=== PATIENT | male | born 1970 | race Caucasian/White ===

== ENCOUNTER 2018-04-21 04:02 | Observation (INO) ==
[2018-04-21] MEDS ORDERED: OXYCODONE Oral CONC 10 MG/0.5 ML ORAL.SYG SL PRN ×2 (06:42→11:15)
[2018-04-21] MEDS ORDERED: Naloxone 0.4 MG/ML INJ IVP PRN ×4 (06:42→11:15)
[2018-04-21] MEDS ORDERED: Ketorolac 30 MG/ML VIAL IVP PRN ×2 (06:42→11:15)
[2018-04-21] MEDS ORDERED: 0.9 % Sodium Chloride 1,000 ML IVC SCH (06:45)
[2018-04-21] MEDS ORDERED: *HR* FentaNYL (PF) 100 MCG/2 ML VIAL ONE ×2 (07:25→09:32)
[2018-04-21] MEDS ORDERED: *HR* Midazolam HCl 2 MG/2 ML VIAL ONE (07:26)
[2018-04-21] MEDS ORDERED: *HR* Propofol 200 MG/20 ML VIAL IVP ONE ×2 (07:26→09:48)
[2018-04-21] MEDS ORDERED: *HR* Succinylcholine 200 MG/10 ML VIAL IVP ONE (07:27)
[2018-04-21] MEDS ORDERED: Lidocaine -MPF 2% 2 ML VIAL ONE (07:27)
[2018-04-21] MEDS ORDERED: Dexamethasone 4 MG/ML VIAL ONE (07:29)
[2018-04-21] MEDS ORDERED: Ondansetron 4 MG/2 ML VIAL ONE (07:29)
[2018-04-21] MEDS ORDERED: Isovue-300 50 ML VIAL IVP ONE (07:51)
--- NOTE | 2018-04-21 08:00 | Urology - Consult Note ---
Date of Encounter: 04/21/18 Time of Encounter: 07:58 Urology CN:MICHELLE Consult date: 04/21/18 Reason for consult Urology: Hydronephrosis Requesting physician: Asia Whitt History of present illness: Dion is a 48-year-old male who presents an outside hospital secondary to severe right-sided flank pain. Patient was found to have a proximal right 4-5 mm ureteral stone. Patient also with gross hematuria. Patient on chronic anticoagulation secondary to right lower extremity DVT history. Patient also with history of diabetes which she states is well controlled. Patient had bacteria in his urine on urinalysis done at outside hospital. No fevers documented. No nausea or vomiting at this time the patient does admit to occasional nausea over the past couple days. Medications and Allergies Cholecalciferol (Vitamin D3) [Vitamin D] 1,000 unit PO DAILY 04/21/18 [History] Gabapentin [Neurontin] 800 mg PO QID 04/21/18 [History] Rivaroxaban [Xarelto] 20 mg PO DAILY 04/21/18 [History] metFORMIN [Glucophage] 1,000 mg PO BID 04/21/18 [History] Review of Systems - Constitutional fever(s), no chills - EENT Nose, mouth and throat: no dizziness - Cardiovascular no chest pain - Respiratory no cough - Gastrointestinal no abdominal pain Exam Initial Vital Signs Temp Pulse Resp BP Pulse Ox 98.5 F 88 16 171/80 93 04/21/18 07:30 04/21/18 07:30 04/21/18 07:30 04/21/18 07:30 04/21/18 07:30 General/Neuological: alert and oriented x 3 Eyes: normal pupils, non-icteric Neck: no lymphadenopathy noted, supple to touch ABD: soft, nontender, no masses palpated, good bowel sounds Back: no pain on percussion bilaterally Skin: no rashes noted Musculoskeletal: normal gait, FROMx4 Urology Results - Labs All other labs normal. - Imaging CT scan - abdomen: image reviewed CT scan - pelvis: image reviewed
--- NOTE | 2018-04-21 08:01 | Event Note ---
Date of Encounter: 04/21/18 Time of Encounter: 08:00 Assessment and plan patient with right-sided proximal 4-5 mm stone and likely UTI. We will plan on taking the patient to the operative room today for cystoscopy and right ureteral stent placement. Informed consent was reviewed with the patient placed in the chart.
[2018-04-21] MEDS ORDERED: *HR* Dextrose 50 % in Water (Syg) 50 ML SYRINGE IVP PRN ×3 (08:03→16:36)
[2018-04-21] MEDS ORDERED: D5% in Water 1,000 ML IVC PRN ×3 (08:03→16:36)
[2018-04-21] MEDS ORDERED: Nicotine 14 MG PATCH.TD24 TD PRN ×2 (08:03→11:15)
[2018-04-21] MEDS ORDERED: Dextrose Gel 15 GM/37.5 ML TUBE PO PRN ×6 (08:03→16:36)
--- NOTE | 2018-04-21 08:05 | Internal Med History&Physical ---
Date of Encounter: 04/21/18 Time of Encounter: 07:43 Internal Medicine - H&P: HPI Chief complaint: right flank pain, hematuria Admitted From: Intrahospital Transfer Plans for Post Hospital Care: at Home History of present illness: Mr. 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 Patient is states that he started to have right flank pain By 10 in severity nonradiating not associated with vomiting fever or chills a long with gross hematuria yesterday afternoon therefore he went to [facility] and after initial evaluation and first toes of [place] patient was transferred to [facility]. Urologist was consulted. Patient denies fever or chills vomiting dizziness chest pain shortness of breath diarrhea. He complained of nausea, pain is better rating 6 x 10, chronic increased urine frequency, has chronic intermittent cough, nausea. reviewed the lab done in [facility]-mild leukocytosis with stable hemoglobin and no electrolyte imbalance, UA positive for nitrite and RBCs and WBCs Past Med Surg Social Fam HX - Past Medical History Source: patient Medical history: DVT, diabetes, hypertension, migraine - Past Surgical History Surgical History: no surgical history - Social History Smoking Status: Current every day smoker Packs per day: One pack per day Alcohol use: none Occupational status: disabled - Family History Mother Living Status: Still Living Hx Family Cardiac Disorders: Yes Hx Family Endocrine Disorder: Yes (DM) Father Living Status: Cause of : stage 4 lung cancer Hx Family Endocrine Disorder: Yes (DM) Internal Medicine - H&P: Meds Cholecalciferol (Vitamin D3) [Vitamin D] 1,000 unit PO DAILY 04/21/18 [History] Gabapentin [Neurontin] 800 mg PO QID 04/21/18 [History] Rivaroxaban [Xarelto] 20 mg PO DAILY 04/21/18 [History] metFORMIN [Glucophage] 1,000 mg PO BID 04/21/18 [History] Allergy/AdvReac Type Severity Reaction Status Date / Time morphine AdvReac Itching Verified 04/21/18 08:17 tramadol AdvReac Anxiety Verified 04/21/18 08:17 All Systems PM: A 10-system review of systems was performed and is negative for pertinent findings except as documented above in the HPI. - Constitutional Vitals: Temp Pulse Resp BP Pulse Ox 98.5 F 88 16 171/80 93 04/21/18 07:30 04/21/18 07:30 04/21/18 07:30 04/21/18 07:30 04/21/18 07:30 Exam: General appearance: Mild distress due to pain, obese. Head exam: Atraumatic Eye exam: EOMI, PERRLA ENT exam: Moist oral mucosa Neck nontender, supple Respiratory exam: Clear to auscultation bilaterally Cardiovascular exam: Regular rate and rhythm, no systolic murmur Abdominal exam: Soft, nontender, nondistended, positive bowel sounds , right costovertebral angle tenderness Extremities exam: No calf tenderness, no pedal edema Present: Skin-no rash, warm, dry, intact Neurological exam: Alert, awake, oriented 3, CN II-XII intact, no focal deficits. No facial droop. Normal speech. - Assessment and plan (1) Obstructive uropathy Current Visit: Yes Status: Acute Assessment and plan: CT abdomen done in closure but now printed report available. CD of CT scan was reviewed by urologist with finding of 4-5 mm ureter stone with hydronephrosis. Patient does not appear in sepsis. Mild leukocytosis upon reviewing the lab done in [facility] with normal BMP. Possibility of UTI therefore will continue Rocephin. First dose of Rocephin given around 3:00 in the morning at [facility]. Urologists on board and taking patient to OR now for cystoscopy and possible right ureter stent placement . Keep patient nothing by mouth with IV fluid normal saline 150 per hour, pain management. UA done in [place] with abnormal finding nitrite positive with hematuria. Urine culture ordered. (2) UTI (urinary tract infection) Current Visit: Yes Status: Acute Assessment and plan: As mentioned above. Complicated UTI. Will await for urine culture sensitivity report. Continue Rocephin. Qualifiers: Urinary tract infection type: acute cystitis Hematuria presence: with hematuria Qualified Code(s): N30.01 - Acute cystitis with hematuria (3) Hematuria Current Visit: Yes Status: Acute Assessment and plan: Progressive mature area. Patient is on anticoagulation medicine. Monitor H&H. Hemoglobin is stable -review lab done at [facility]. Resume xarelto as per urology advice. Qualifiers: Hematuria type: gross Qualified Code(s): R31.0 - Gross hematuria (4) Diabetes mellitus Current Visit: Yes Status: Acute Assessment and plan: Has been controlled on metformin only as per patient. Associated with diabetic nephropathy possibly. A1c ordered. Accu-Chek every 6 hours while nothing by mouth and will change to before meals once he starts diabetic diet. SSI low. Diabetes education. Qualifiers: Diabetes mellitus type: type 2 Diabetes mellitus longterm insulin use: without longterm use Diabetes mellitus complication status: with neurologic complications Qualified Code(s): E11.40 - Type 2 diabetes mellitus with diabetic neuropathy, unspecified (5) Hypertension Current Visit: Yes Status: Acute Assessment and plan: High blood pressure that could be due to pain as well. Patient does not take any home antihypertensive medicine. Close monitoring and will consider oral antihypertensive medicine if it stays high. Hydralazine when necessary. Qualifiers: Hypertension type: essential hypertension Qualified Code(s): I10 - Essential (primary) hypertension (6) Smoker Current Visit: Yes Status: Acute Assessment and plan: Chronic a smoker. Smoking cessation education given. Patient is willing to quit therefore resources made available. Nicotine patch as started. (7) DVT prophylaxis Current Visit: Yes Status: Acute Assessment and plan: History of DVT status post IVC filter and xarelto. Will resume Xarelto once cleared by urologist as patient had gross hematuria. SCDs (8) Migraine Current Visit: Yes Status: Acute Assessment and plan: Intermittently get better with Tylenol. Following his PCP. Qualifiers: Migraine type: without aura Intractability: not intractable Qualified Code(s): G43.001 - Migraine without aura, not intractable, with status migrainosus - Time Spent With Patient Total time spent is greater than 50% in coordination of care (as documented) at patient's floor/unit and/or counseling patient: 25 - 35 minutes
[2018-04-21] MEDS ORDERED: Acetaminophen 325 MG TABLET PO PRN ×2 (08:32→11:15)
[2018-04-21] MEDS ORDERED: Albuterol 2.5 MG/3 ML NEBULIZER IH ONE (08:45)
[2018-04-21] MEDS ORDERED: Acetaminophen IV 1,000 MG/100 ML INFUS..BTL ONE (08:49)
[2018-04-21] MEDS ORDERED: Famotidine 20 MG/2 ML VIAL ONE (08:49)
[2018-04-21] MEDS ORDERED: Albuterol 2.5 MG/3 ML NEBULIZER ONE (08:52)
[2018-04-21] MEDS ORDERED: Lidocaine -MPF 4% 5 ML AMPUL ONE (08:57)
--- NOTE | 2018-04-21 08:59 | Anesthesia Evaluation PreOp ---
Date of Encounter: 04/21/18 Time of Encounter: 09:00 - Past History Planned Operation: Rt Ureteral Stent Cystoscopy Cardiac History: HTN, Other (DVT has Filter, on Xarelto) Pulmonary History: Smoker FACTORY MAINTENANCE MANAGER History: Denies Any Significant HX Other Medical History: Diabetes Type II, Other ([place]) Anesthesia History: No Prior Anesthetic Complications Alcohol Use: none Drug use: none Medications and Allergies Cholecalciferol (Vitamin D3) [Vitamin D] 1,000 unit PO DAILY 04/21/18 [History] Gabapentin [Neurontin] 800 mg PO QID 04/21/18 [History] Rivaroxaban [Xarelto] 20 mg PO DAILY 04/21/18 [History] metFORMIN [Glucophage] 1,000 mg PO BID 04/21/18 [History] Allergy/AdvReac Type Severity Reaction Status Date / Time morphine AdvReac Itching Verified 04/21/18 08:17 tramadol AdvReac Anxiety Verified 04/21/18 08:17 - Meds/Allergy Pre-op Review Medications Reviewed: Yes Allergies Reviewed: Yes Beta Blockers on Current Med List: No Anesthesia Exam Vital Signs/O2 Sat/Glucose, Most Current Temp Pulse Resp BP Pulse Ox 04/21/18 07:30 98.5 F 88 16 171/80 93 Height: 5'11 Weight: 297 lbs NPO (# of Hours): MN Pain Scale: 1 - HEENT Pupil (Motor): Pupils equal, EOMI Mallampati: III Teeth: Edentulous Oral Opening: Less than or equal to 3 - FACTORY MAINTENANCE MANAGER LOC: Oriented FACTORY MAINTENANCE MANAGER Motor: Normal RUE, Normal LUE, Normal RLE, Normal LLE, Normal Face FACTORY MAINTENANCE MANAGER Sensory: Normal: RUE, LUE, RLE, LLE, Face - Cardiac Rhythm: Regular Murmur: None JVD: No Carotid Bruit: No - Pulmonary Breath Sounds: bilateral Clear Respiratory Effort: Symmetrical Anesthesia Assess/Plan ASA Score: 3 (HTN Tobacco [place] DM) Level of consciousness: Cooperative Anesthetic Plan: General Autologous Blood: No Monitoring Plan: Standard Monitors Recovery Plan: PACU (Discussed GA, agrees to proceed)
[2018-04-21] MEDS ORDERED: Cholecalciferol (D-3) 1,000 UNIT TABLET PO SCH (09:00)
[2018-04-21] MEDS ORDERED: Gabapentin 400 MG CAPSULE PO SCH (09:00)
[2018-04-21] MEDS ORDERED: *HR* Rivaroxaban 10 MG TABLET PO SCH (09:00)
[2018-04-21] MEDS ORDERED: cefTRIAXone 1,000 MG in Water for inj. (sterile) 20 ML 10 ML IVPB SCH (09:00)
[2018-04-21] MEDS ORDERED: *HR* Promethazine 25 MG/ML VIAL IVP PRN (09:31)
[2018-04-21] MEDS ORDERED: Ondansetron 4 MG/2 ML VIAL IVP ONE (09:31)
[2018-04-21] MEDS ORDERED: *HR* OxyCODONE Immed Rel 5 MG TABLET PO PRN (09:31)
[2018-04-21] MEDS ORDERED: *HR* HYDROmorphone (PF) 1 MG/ML SYRINGE IVP PRN (09:31)
[2018-04-21] MEDS ORDERED: *HR* Rocuronium Bromide 50 MG/5 ML VIAL ONE (09:45)
--- NOTE | 2018-04-21 10:11 | Operative Note ---
Date of procedure: 04/21/18 Pre-op diagnosis: right proximal ureteral stone with uti Post-op diagnosis: same Procedure: Cystoscopy and 4.8 x 28 cm ureteral stent placement Anesthesia: POORNIMAA Surgeon: Jonathan Szymanski Was there an customer relations assistant present: No Estimated blood loss (cc): 0 Specimen: None Condition: stable Disposition: PACU Procedure in Detail: Patient was prepped and draped in normal sterile fashion. Timeout procedure performed. I then inserted the cystoscope into the patient's bladder. He had a mild amount of gross hematuria within his bladder lumen. No obvious tumors were noted. I then cannulated the right ureteral orifice using a sensor wire. A 4.8 x 28 cm stent was then placed into the right kidney with good curl seen in the right kidney and in the bladder. Bladder was drained and procedure was ended. Patient taken to PACU in stable condition.
--- NOTE | 2018-04-21 10:51 | Anesthesia Evaluation Post Op ---
Date of Encounter: 04/21/18 Time of Encounter: 11:00 - Vital Signs Vital Signs: Vital Signs/O2 Sat/Glucose, Most Current Temp Pulse Resp BP Pulse Ox 04/21/18 10:41 99 20 119/75 93 04/21/18 10:31 104 22 131/76 93 04/21/18 10:21 98.9 F 103 20 117/80 100 04/21/18 07:30 98.5 F 88 16 171/80 93 - Lungs Lungs: Clear Ascult./Percussion - Airway Airway: Non-obstructed - Cardiovascular Regular Rate - Mental Status Mental Status: Alert & Oriented, Answers Appropriately - Pain Pain Scale: 0 - Nausea Vomiting Nausea Vomiting: Not Present - Hydration Hydration: Ice chips - Discharge PostOp Status: Transfer Patient to floor
[2018-04-21 11:48] LABS: Bilirubin,Urine Negative (Negative); Blood,Urine Large (Negative); Clarity,Urine Clear (Clear); Color,Urine Yellow (Yellow); Glucose,Urine (UA) Normal (Normal); Ketones,Urine Negative (Negative); Leukocyte Esterase,Urine Negative (Negative); Nitrite,Urine Negative (Negative); Protein,Urine 30 mg/dL (Neg-Trace); Specific Gravity,Urine 1.009 (1.010-1.025); Urobilinogen,Urine Normal (Normal)
[2018-04-21] MEDS ORDERED: Insulin LISPRO 300 UNITS/3 ML VIAL SQ SCH ×3 (12:00→21:00)
[2018-04-21] MEDS: 0.9 % Sodium Chloride 1,000 ML IVC SCH ×2 (12:10→19:03)
[2018-04-21 13:19] LABS: Basophils % 0.2 %; Eosinophils # 0.2 K/mcL (0.0-0.6); Eosinophils % 0.9 %; Hematocrit 39.2 % (37.5-50.1); Hemoglobin 12.8 g/dL (12.9-16.9); Immature Granulocytes % 0.4 % (0-4); Lymphocytes # 1.2 K/mcL (0.6-4.6); Lymphocytes % 7.4 %; Mean Corpuscular HGB Conc 32.7 g/dL (31.6-35.5); Mean Corpuscular Hemoglobin 29.8 pg (28.0-33.3); Mean Corpuscular Volume 91.4 fL (83.0-100.0); Mean Platelet Volume 8.9 fL (9.4-12.4); Monocytes # 0.4 K/mcL (0.0-1.3); Monocytes % 2.6 %; Neutrophils # 14.2 K/mcL (1.6-8.9); Platelet Count 272 K/mcL (140-400); Red Blood Count 4.29 M/mcL (4.19-5.50); Red Cell Distribution Width 13.4 % (11.5-14.5); Segmented Neutrophils % 88.5 %
[2018-04-21 13:28] LABS: INR 1.4; Prothrombin Time 15.3 Seconds (9.4-12.1)
[2018-04-21 13:31] LABS: Activated Partial Thrombo Time 36.8 Seconds (26.0-36.0)
[2018-04-21] MEDS: Gabapentin 400 MG CAPSULE PO SCH ×3 (14:04→21:01)
[2018-04-21] MEDS: Insulin LISPRO 300 UNITS/3 ML VIAL SQ SCH (16:41)
[2018-04-21] MEDS: *HR* OxyCODONE Immed Rel 5 MG TABLET PO PRN ×2 (17:07→21:01)
[2018-04-21 21:35] LABS: Basophils % 0.1 %; Eosinophils % 0.1 %; Hematocrit 40.1 % (37.5-50.1); Hemoglobin 13.2 g/dL (12.9-16.9); Immature Granulocytes % 0.5 % (0-4); Lymphocytes # 1.3 K/mcL (0.6-4.6); Lymphocytes % 8.5 %; Mean Corpuscular HGB Conc 32.9 g/dL (31.6-35.5); Mean Corpuscular Hemoglobin 29.9 pg (28.0-33.3); Mean Corpuscular Volume 90.9 fL (83.0-100.0); Mean Platelet Volume 9.1 fL (9.4-12.4); Monocytes # 0.5 K/mcL (0.0-1.3); Monocytes % 3.1 %; Neutrophils # 13.6 K/mcL (1.6-8.9); Platelet Count 313 K/mcL (140-400); Red Blood Count 4.41 M/mcL (4.19-5.50); Segmented Neutrophils % 87.7 %
[2018-04-22] MEDS: *HR* OxyCODONE Immed Rel 5 MG TABLET PO PRN ×2 (03:18→10:52)
[2018-04-22 05:50] LABS: BUN/Creatinine Ratio 16 (6-26); Blood Urea Nitrogen 12 mg/dL (6-20); Calcium 8.7 mg/dL (8.6-10.3); Carbon Dioxide 24 mEq/L (23-29); Chloride 107 mEq/L (98-107); Glucose 250 mg/dL (70-105); Osmolality,Calculated 292 (280-300); Potassium 3.9 mEq/L (3.5-5.1); Sodium 137 mEq/L (136-145); eGFR For Non-African Americans > 60 (> 60)
--- NOTE | 2018-04-22 07:12 | Urology Progress Note ---
Date of Encounter: 04/22/18 Time of Encounter: 07:09 - Assessment and Plan (1) Left ureteral stone Current Visit: Yes Status: Acute Assessment and plan: sp stent placement. doing better. patient will be scheduled for stone extr action next week. (2) UTI (urinary tract infection) Current Visit: Yes Status: Acute Assessment and plan: Recommend 10 days of antimicrobial coverage Qualifiers: Urinary tract infection type: acute cystitis Hematuria presence: with hematuria Qualified Code(s): N30.01 - Acute cystitis with hematuria Progress Note Narrative: Postoperative day 1 status post ureteral stent placement. Patient feeling better. No fevers. Cultures pending. Leukocytosis improved Objective Initial Vital Signs Temp Pulse Resp BP Pulse Ox 98.5 F 88 16 171/80 93 04/21/18 07:30 04/21/18 07:30 04/21/18 07:30 04/21/18 07:30 04/21/18 07:30 - General physical appearance Present: well developed, well nourished - Respiratory Present: normal expansion, normal respiratory effort - Abdomen Present: soft. Absent: tender - Labs 04/21/18 21:20 04/22/18 04:29 Diabetes panel 04/22/18 Range/Units 04:29 Sodium 137 (136-145) mEq/L Potassium 3.9 (3.5-5.1) mEq/L Chloride 107 (98-107) mEq/L Carbon Dioxide 24 (23-29) mEq/L BUN 12 (6-20) mg/dL Creatinine 0.73 (0.70-1.30) mg/dL Glucose 250 H (70-105) mg/dL Calcium 8.7 (8.6-10.3) mg/dL Calcium panel 04/22/18 Range/Units 04:29 Calcium 8.7 (8.6-10.3) mg/dL Pituitary panel 04/22/18 Range/Units 04:29 Sodium 137 (136-145) mEq/L Potassium 3.9 (3.5-5.1) mEq/L Chloride 107 (98-107) mEq/L Carbon Dioxide 24 (23-29) mEq/L BUN 12 (6-20) mg/dL Creatinine 0.73 (0.70-1.30) mg/dL Glucose 250 H (70-105) mg/dL Calcium 8.7 (8.6-10.3) mg/dL Adrenal panel 04/22/18 Range/Units 04:29 Sodium 137 (136-145) mEq/L Potassium 3.9 (3.5-5.1) mEq/L Chloride 107 (98-107) mEq/L Carbon Dioxide 24 (23-29) mEq/L BUN 12 (6-20) mg/dL Creatinine 0.73 (0.70-1.30) mg/dL Glucose 250 H (70-105) mg/dL Calcium 8.7 (8.6-10.3) mg/dL Consult Discharge Plan - Plan Referrals: Radha Bunch, [employer]DER [Primary Care Provider] -
[2018-04-22 07:25] VITALS: BP 115/72
[2018-04-22] MEDS: Insulin LISPRO 300 UNITS/3 ML VIAL SQ SCH (08:06)
[2018-04-22] MEDS: Gabapentin 400 MG CAPSULE PO SCH (08:06)
[2018-04-22] MEDS ORDERED: Cholecalciferol (D-3) 1,000 UNIT TABLET PO SCH (09:00)
[2018-04-22] MEDS ORDERED: cefTRIAXone 1,000 MG in Water for inj. (sterile) 20 ML 10 ML IVPB SCH (09:00)
[2018-04-22 09:49] LABS: Estimated Average Glucose 177 mg/dl; Hemoglobin A1C 7.8 %
--- NOTE | 2018-04-22 11:18 | Discharge Summary ---
- NOTES TO OUTPATIENT PROVIDER Notes to Outpatient Provider: Follow up with PCP in one week. Follow up with the urology Dr. Szymanski in one week Orders not resulted at time of discharge: Pending orders 04/21/18 09:00 Culture,Urine [RM] Stat Date of Encounter: 04/22/18 Time of Encounter: 11:14 - Discharge Diagnosis (1) Obstructive uropathy Priority: Primary Status: Acute (2) UTI (urinary tract infection) Priority: Primary Status: Acute Qualifiers: Urinary tract infection type: acute cystitis Hematuria presence: with hematuria Qualified Code(s): N30.01 - Acute cystitis with hematuria (3) Hematuria Priority: Secondary Status: Acute Qualifiers: Hematuria type: gross Qualified Code(s): R31.0 - Gross hematuria (4) Diabetes mellitus Priority: Secondary Status: Acute Qualifiers: Diabetes mellitus type: type 2 Diabetes mellitus local intermodal truck driver insulin use: without local intermodal truck driver use Diabetes mellitus complication status: with neurologic complications Qualified Code(s): E11.40 - Type 2 diabetes mellitus with diabetic neuropathy, unspecified (5) Hypertension Priority: Secondary Status: Acute Qualifiers: Hypertension type: essential hypertension Qualified Code(s): I10 - Essential (primary) hypertension (6) Smoker Priority: Secondary Status: Acute (7) DVT prophylaxis Priority: Secondary Status: Acute (8) Migraine Priority: Secondary Status: Acute Qualifiers: Migraine type: without aura Intractability: not intractable Qualified Code(s): G43.001 - Migraine without aura, not intractable, with status migrainosus Hospital course: Mr. 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 UA positive for nitrite and RBCs and WBCs. Pt was admitted in the hospital and placed him on IV antibiotic Rocephin. He was evaluated by urologist who did stent placement yesterday. Now patient has been doing well his symptoms improved. His flank pain also tolerable with current pain medication. So will discharge him home in a stable condition today with total 10 days course of oral antibiotic Cipro as well as pain medication - Time Spent with Patient Total time spent providing and/or coordinating discharge services: - Discharge Medications Prescriptions: Ciprofloxacin HCl [Cipro] 500 mg PO BID #16 tablet Nicotine Patch [Nicoderm] 14 mg TD DAILY PRN #30 patch.td24 PRN Reason: Smoking Oxycodone HCl/Acetaminophen [Percocet 7.5-325 mg Tablet] 1 each PO Q6H PRN 5 Days #20 tablet PRN Reason: Pain Home Medications: Cholecalciferol (Vitamin D3) [Vitamin D3] 1,000 unit PO DAILY 04/21/18 [History] Gabapentin [Neurontin] 800 mg PO QID 04/21/18 [History] Rivaroxaban [Xarelto] 20 mg PO DAILY 04/21/18 [History] metFORMIN [Glucophage] 1,000 mg PO BID 04/21/18 [History] Ciprofloxacin HCl [Cipro] 500 mg PO BID #16 tablet 04/22/18 [Rx] Nicotine Patch [Nicoderm] 14 mg TD DAILY PRN #30 patch.td24 04/22/18 [Rx] Oxycodone HCl/Acetaminophen [Percocet 7.5-325 mg Tablet] 1 each PO Q6H PRN 5 Days #20 tablet 04/22/18 [Rx] Allergies/Adverse Reactions: Allergy/AdvReac Type Severity Reaction Status Date / Time morphine AdvReac Itching Verified 04/21/18 08:17 tramadol AdvReac Anxiety Verified 04/21/18 08:17 Date of admission: 04/21/18 06:07 Primary care physician: Radha Bunch Consults: 04/21/18 07:03 Consult to Urology [CONS] Routine Consulting Provider: Urology Nicole Reason for Consult: Nephrolithiasis Call Completed: Yes - Constitutional Vitals: Temp Pulse Resp BP Pulse Ox 98 F 78 16 115/72 94 04/22/18 07:24 04/22/18 07:24 04/22/18 07:24 04/22/18 07:24 04/22/18 08:21 General appearance: Present: A&O X 3, no acute distress, answers questions appropriately Exam: Gen: Alert, awake, Oriented to time,place and person Chest: Diminished breath sounds B/L, No wheezing, No crackles, No rales Heart: S1S2+ RRR No murmurs Abd: Soft, NT, BS +, No organomegaly Ext: No edema, pulses are palpable, No calf tenderness Neuro : Benign findings Skin: No rash. - Patient Status Disposition: Home, Self-Care Condition: Good Overall status at discharge: patient is back to baseline - Discharge Instructions Follow Up With: Radha Bunch CNP [Primary Care Provider] - 04/26/18 9:30 am Jonathan Szymanski MD [Partnered Physician] - - Diet and Activity Activity: increase activity as tolerated Diet: low salt diet
[2018-04-22] MEDS ORDERED: *HR* Rivaroxaban 10 MG TABLET PO SCH (17:00)
== END 2018-04-22 12:50 | disposition home or self-care (01) ==
LOC: 3BNU → SUATTDRO 06:07 → 3BNU 21:01
PROVIDERS: ADMIT Internal Medicine; ATTEND Family Medicine